=== PATIENT | male | born 1980 | race African-American/Black ===

== ENCOUNTER 2021-08-21 06:45 | Emergency (ER) | payer OTHER ==
[~2021-08-21] VITALS: Ht 188 cm; Wt 86.2 kg
[2021-08-21 07:51] LABS: INFLUENZA A ANTIGEN Negative (Negative); INFLUENZA B ANTIGEN Negative (Negative)
[2021-08-21] MEDS ORDERED: TESSALON PERLE100 MG PO (07:55)
[2021-08-21] MEDS ORDERED: ZOFRAN ODT4 MG DISSOLVE (07:55)
[2021-08-21 08:00] VITALS: BP 149/90
== END 2021-08-21 08:00 | disposition home or self-care (01) ==
LOC: M.ERS 06:45
PROVIDERS: Emergency Medicine Emergency Medical Services
DX: U07.1 COVID-19 (principal)